=== PATIENT | female | born 1960 | race Caucasian/White ===

== ENCOUNTER 2017-10-05 21:03 | Emergency (ER) | payer BC, OTHER ==
[~2017-10-05] VITALS: Ht 162.6 cm; Wt 106.8 kg
[2017-10-05] MEDS ORDERED: TOPA50TA8 PO (21:18)
[2017-10-05] MEDS ORDERED: DULO30CA PO ×2 (21:18)
[2017-10-05] MEDS ORDERED: DYAZ37.5 PO (21:18)
[2017-10-05] MEDS ORDERED: PROT1TAB2 PO (21:18)
[2017-10-05] MEDS ORDERED: METO37.5 PO (21:18)
[2017-10-05] MEDS ORDERED: COUM1TAB17 PO (21:18)
[2017-10-05] MEDS ORDERED: EC-N375T PO (21:18)
[2017-10-05] MEDS ORDERED: NAPR500T PO (21:18)
[2017-10-05] MEDS ORDERED: CLEO300C2 PO (21:54)
[2017-10-05] MEDS ORDERED: CLINDAMYCIN 150 MG CAP PO ONE (22:00)
[2017-10-05 22:14] VITALS: BP 144/82
[2017-10-05 22:24] LABS: INR 1.77
[2017-10-07 11:27] LABS: HEPATITIS B SURFACE ANTIBODY NEGATIVE (POSITIVE)
== END 2017-10-05 22:21 | disposition home or self-care (01) ==
LOC: M ED 21:03
DX: S51.852A Open bite of left forearm, initial encounter (principal); I10 Essential (primary) hypertension; M79.7 Fibromyalgia; E78.4 Other hyperlipidemia; Z86.73 Personal history of transient ischemic attack (TIA), and cerebral infarction without residual deficits; Z86.711 Personal history of pulmonary embolism; Z79.01 Long term (current) use of anticoagulants; Y04.1XXA Assault by human bite, initial encounter; Y92.238 Other place in hospital as the place of occurrence of the external cause; Y93.89 Activity, other specified; Y99.0 Civilian activity done for income or pay

== ENCOUNTER 2017-11-10 01:42 | Emergency (ER) | payer OTHER, SELFPAY ==
[~2017-11-10] VITALS: Ht 160 cm; Wt 109.1 kg
[~2017-11-10 01:42] MED LIST: CLEO300C2 PO; COUM1TAB17 PO; DULO30CA PO; DYAZ37.5 PO; EC-N375T PO; METO37.5 PO; NAPR500T PO; PROT1TAB2 PO; TOPA50TA8 PO
[2017-11-10] MEDS ORDERED: TOPR25TA PO (01:52)
[2017-11-10] MEDS ORDERED: COUM1TAB17 PO (01:52)
[2017-11-10] MEDS ORDERED: NS 1,000 ML IV ONE (02:00)
[2017-11-10] MEDS ORDERED: ONDANSETRON 4MG/2ML VIAL (J2405) IV ONE (02:00)
[2017-11-10 02:23] LABS: BASO # 0.1 10^3/uL (0.0-0.2); BASO % 0.8 % (0.0-1.0); EOS # 0.3 10^3/uL (0.0-0.50); EOS % 3.7 % (0.0-3.0); IMMATURE GRANULOCYTE % 0.1 % (0-0); LYMPH % 32.4 % (24.0-44.0); MEAN CORPUSCULAR HEMOGLOBIN 28.1 pg (27.0-33.0); MEAN CORPUSCULAR HGB CONC 31.5 g/dl (32.0-36.5); MEAN CORPUSCULAR VOLUME 89.2 fl (80.0-96.0); MONO # 0.7 10^3/uL (0.0-0.8); MONO % 7.7 % (0.0-5.0); NEUTROPHILS # 5.1 10^3/uL (1.8-7.7); NEUTROPHILS % 55.3 % (36.0-66.0); PLATELET COUNT, AUTOMATED 369 10^3/uL (150-450); RED CELL DISTRIBUTION WIDTH 14.1 % (11.5-14.5); WHITE BLOOD COUNT 9.2 10^3/uL (4.0-10.0)
[2017-11-10 02:32] LABS: MUCUS, URINE RFX SMALL (NEGATIVE); SPECIFIC GRAVITY UR AUTO RFX 1.028 (1.002-1.035); SQUAM EPITHELIAL CELL UR AURFX 10 /HPF (0-6)
[2017-11-10 02:38] LABS: INR 1.18
[2017-11-10 02:46] LABS: ALBUMIN 3.5 GM/DL (3.2-5.2); ALBUMIN/GLOBULIN RATIO 0.95 (1.00-1.93); ALKALINE PHOSPHATASE 125 U/L (45-117); ALT/SGPT 17 U/L (12-78); ANION GAP 8 MEQ/L (8-16); AST/SGOT 13 U/L (7-37); BILIRUBIN,DIRECT < 0.1 MG/DL (0.0-0.2); BILIRUBIN,TOTAL 0.3 MG/DL (0.2-1.0); BLOOD UREA NITROGEN 21 MG/DL (7-18); CALCIUM LEVEL 8.4 MG/DL (8.5-10.1); CARBON DIOXIDE LEVEL 26 MEQ/L (21-32); CHLORIDE LEVEL 110 MEQ/L (98-107); GLOMERULAR FILTRATION RATE > 60.0 (>51); GLUCOSE, FASTING 108 MG/DL (70-105); POTASSIUM SERUM 3.5 MEQ/L (3.5-5.1); SODIUM LEVEL 144 MEQ/L (136-145); TOTAL PROTEIN 7.2 GM/DL (6.4-8.2)
[2017-11-10] MEDS ORDERED: ISOVUE-370 76% 100ML VIAL (Q9967) As Ordered ONE (03:02)
[2017-11-10] MEDS ORDERED: KETOROLAC 30 MG/ML VIAL (J1885) IV ONE (04:00)
--- NOTE | 2017-11-10 04:00 | REPUSA ---
CLINICAL HISTORY: Dyspnea, exclude PE. TECHNIQUE: Multiple incremental axial, coronal and oblique images are obtained from the thoracic inle t to the upper abdomen. Intravenous contrast material was administered as per pulmonary embolism prot ocol. COMMENTS: Mildly enlarged pulmonary artery. Mild cardiomegaly. Multifocal air trapping in the lungs. Small sliding hiatal hernia. There is excellent opacification of pulmonary arterial system without evidence for pulmonary embolism . Aorta is of normal caliber without evidence for dissection or aneurysm. There is no evidence of pleural or parenchymal mass. There are no pleural effusions. There is no evid ence of hilar or mediastinal lymphadenopathy. The heart and great vessels are within normal limits. Images of the upper abdomen demonstrate no evidence of adrenal mass. The bony structures are free of lytic or blastic lesions. IMPRESSION: No evidence for pulmonary embolism. Multifocal air trapping in the lungs. Cardiomegaly. Enlarged main pulmonary artery suggestive of pulmonary hypertension. Thank you for your kind referral of this patient.
--- NOTE | 2017-11-10 04:30 | REPUSA ---
CLINICAL HISTORY: Abdominal pain. TECHNIQUE: Multiple axial, sagittal and coronal CT images were obtained through the abdomen and pelvi s after administration of oral and intravenous contrast material. COMMENTS: Small sliding hiatal hernia. The liver is of uniform attenuation without mass or defect. There is no intra or extrahepatic biliary ductal dilatation. The spleen is normal. The gallbladder is absent. The pancreas is of normal contou r and attenuation characteristics. There is no evidence of adrenal mass. Both kidneys demonstrate prompt and equal nephrograms. The kidneys are normal in size, shape and conf iguration. There is no evidence of renal or ureteral mass. No renal or ureteral calculi are identifie d. There is no hydroureter or hydronephrosis. No evidence for appendicitis. There is no bowel wall thickening. No evidence for small or large ifeanyi l obstruction. There is no evidence of abdominal ascites or lymphadenopathy. There is no evidence of intrinsic or extrinsic bladder mass. Diffusely thickened bladder. 3 mm calcification of the anterior bladder wall. There is no pelvic ascites or lymphadenopathy. Mild amount of fecal residue in the large bowel. Uncomplicated chronic diverticulosis. Images of the lung bases show no evidence of pleural or parenchymal mass. There are no pleural effusi ons. The bony structures are free of lytic or blastic lesions. Multilevel degenerative changes are seen in volving the thoracolumbar spine. Scattered calcifications are seen involving the aorta and major bran ches compatible with atherosclerosis. IMPRESSION: Uncomplicated diverticulosis. Absent gallbladder. Anterior bladder wall calcification. Thickened bladder. Small sliding hiatal hernia. Cardiomegaly. Thank you for your kind referral of this patient.
[2017-11-10] MEDS ORDERED: ZOFR4TAB3 PO (04:45)
[2017-11-10] MEDS ORDERED: CEFTRIAXONE SOD 1 GM in APPROPRIATE DILUENT 1 EA IV ONE (04:45)
[2017-11-10] MEDS ORDERED: KEFL500C17 PO (04:45)
[2017-11-10 05:21] VITALS: BP 113/69
--- NOTE | 2017-11-10 08:46 | ECGEPIP ---
Stationary ECG Study [facility] - ED Test Date: 2017-11-10 Pat Name: JORY KAUR Department: Room: - Gender: F Shoemaker Custom: MeridaB: [id number] Requested By: BRIDGET Pratt Order Number: [id number] Reading MD: Maribell Ruiz Measurements Intervals [place] Rate: 64 P: 26 OR: 175 QRS: 31 QRSD: 92 T: 30 QT: 430 QTc: 444 Interpretive Statements SINUS RHYTHM NONSPECIFIC T-WAVE ABNORMALITY DECREASED RATE 06/29/16 Electronically Signed On 11-10-2017 8:46:36 EST by Maribell Ruiz
== END 2017-11-10 05:30 | disposition home or self-care (01) ==
LOC: M ED 01:42
DX: N10 Acute pyelonephritis (principal); R10.9 Unspecified abdominal pain; Z86.711 Personal history of pulmonary embolism; I51.7 Cardiomegaly; K44.9 Diaphragmatic hernia without obstruction or gangrene; N32.9 Bladder disorder, unspecified; K57.90 Diverticulosis of intestine, part unspecified, without perforation or abscess without bleeding; Z79.01 Long term (current) use of anticoagulants; Z79.899 Other long term (current) drug therapy; Z88.0 Allergy status to penicillin; Z88.1 Allergy status to other antibiotic agents; Z88.8 Allergy status to other drugs, medicaments and biological substances
CPT/HCPCS: 71275; 74177; 80048; 80076; 81001; 82550; 82553; 83690; 85025; 85610; 85730; 87086; 93005; 93041; 94760; 96374; 96375; 99285; J1885; J2405; Q9967

== ENCOUNTER 2018-05-04 14:31 | Emergency (ER) | payer OTHER, SELFPAY ==
[2018-05-04] MEDS: METOPROLOL SUCC *XL* 25MG TAB (TopROL *XL*) PO (15:00)
== END 2018-05-04 15:18 | disposition home or self-care (01) ==
LOC: M ED 14:31
DX: Z76.0 Encounter for issue of repeat prescription (principal); I10 Essential (primary) hypertension; R94.31 Abnormal electrocardiogram [ECG] [EKG]; Z79.899 Other long term (current) drug therapy; Z88.0 Allergy status to penicillin; Z88.8 Allergy status to other drugs, medicaments and biological substances; Z86.73 Personal history of transient ischemic attack (TIA), and cerebral infarction without residual deficits
CPT/HCPCS: 93005